=== PATIENT | male | born 1950 | race Caucasian/White ===

== ENCOUNTER 2020-04-07 08:29 | Inpatient (IN) | payer MEDICARE, OTHER ==
[~2020-04-07] VITALS: Ht 167.6 cm; Wt 90.0 kg
[2020-04-07 09:09] LABS: BASOPHILS % (AUTO) 0.5 % (0-1); EOSINOPHILS % (AUTO) 0.7 % (0-6); HEMATOCRIT 46.6 % (42.0-52.0); HEMOGLOBIN 15.9 g/dl (14.0-17.9); LYMPHOCYTES # (AUTO) 1.7 X10'3 (1.1-4.8); LYMPHOCYTES % (AUTO) 22.4 % (21-51); MEAN CORPUSCULAR HEMOGLOBIN 29.8 PG (27.0-31.0); MEAN CORPUSCULAR HGB CONC 34.1 g/dL (33.0-36.5); MEAN CORPUSCULAR VOLUME 87.3 FL (78-98); MEAN PLATELET VOLUME 7.4 FL (7.4-10.4); MONOCYTES # (AUTO) 0.5 X10'3 (0-0.9); MONOCYTES % (AUTO) 6.2 % (2-12); NEUTROPHILS # (AUTO) 5.2 X10'3 (1.8-7.7); NEUTROPHILS % (AUTO) 70.2 % (42-75); PLATELET COUNT 324 X10'3 (140-440); RED BLOOD COUNT 5.34 X10'6 (4.70-6.10); WHITE BLOOD COUNT 7.4 X10'3 (4.5-11.0)
[2020-04-07 09:18] LABS: PARTIAL THROMBOPLASTIN TIME 30 SECONDS (22-32)
[2020-04-07 09:22] LABS: ALANINE AMINOTRANSFERASE 23 U/L (12-78); ALBUMIN 4.1 G/DL (3.4-5.0); ALBUMIN/GLOBULIN RATIO 1.1 (1.1-1.5); ALKALINE PHOSPHATASE 79 IU/L (46-116); ANION GAP 9 (8-16); ASPARTATE AMINO TRANSFERASE 16 U/L (10-37); BILIRUBIN,TOTAL 0.5 MG/DL (0.1-1.0); BLOOD UREA NITROGEN 12 MG/DL (7-18); BUN/CREATININE RATIO 12.9 (5.4-32.0); CHLORIDE 104 MMOL/L (99-107); CREATININE 0.93 MG/DL (0.60-1.10); GLUCOSE 113 MG/DL (70-104); POTASSIUM 3.6 MMOL/L (3.5-5.1); SODIUM 140 MMOL/L (135-145); TOTAL PROTEIN 7.9 G/DL (6.4-8.2); eGFR 81 ML/MIN
[2020-04-07 09:25] LABS: TROPONIN I < 0.04 NG/ML (0.0-0.05)
[2020-04-07] MEDS ORDERED: acetaminophen 325mg tablet PO PRN (10:55)
[2020-04-07] MEDS ORDERED: ondansetron/PF 4mg/2ml inj IV PRN (10:55)
[2020-04-07] MEDS ORDERED: magnesium Cl slow-release 64mg tablet PO PRN (10:55)
[2020-04-07] MEDS ORDERED: magnesium 2GM in 50ml NS 50 ML IV PRN (10:55)
[2020-04-07] MEDS ORDERED: potassium CL 10mEq/100ml bag 100 ML IV PRN ×2 (10:55)
[2020-04-07] MEDS ORDERED: magnesium 4gm in 100ml NS 100 ML IV PRN (10:55)
[2020-04-07] MEDS ORDERED: potassium Cl 20 mEq SR tablet PO PRN ×2 (10:55)
[2020-04-07] MEDS: aspirin 81mg tablet.DR PO SCH (11:18)
[2020-04-07] MEDS: clopidogrel 75mg tablet PO SCH (11:18)
[2020-04-07] MEDS ORDERED: iohexol 350MG/ML 100ml bottle IV ONE (11:42)
[2020-04-07] MEDS ORDERED: NO HOME MEDS (17:12)
[2020-04-07 18:00] VITALS: BP 173/92
--- NOTE | 2020-04-07 18:21 | NUR ---
RECEIVED REPORT FROM RICCARDO HAUSER AND ASSUMED PATIENT CARE
[2020-04-07] MEDS: docusate sod 100mg capsule PO SCH (20:00)
[2020-04-07] MEDS: K and/or MAG REPLACEMENT MC SCH (20:00)
[2020-04-07 22:00] VITALS: BP 132/78
[2020-04-08 02:00] VITALS: BP 154/85
[2020-04-08 06:00] VITALS: BP 122/59
--- NOTE | 2020-04-08 06:15 | NUR ---
Patient in room ORTHO 4010. I have received report from ANALISA CEDILLO and had the opportunity to ask questions and assume patient care.
[2020-04-08 07:55] LABS: BASOPHILS % (AUTO) 0.5 % (0-1); EOSINOPHILS # (AUTO) 0.1 X10'3 (0-0.9); EOSINOPHILS % (AUTO) 1.2 % (0-6); HEMATOCRIT 46.3 % (42.0-52.0); HEMOGLOBIN 15.8 g/dl (14.0-17.9); LYMPHOCYTES # (AUTO) 1.5 X10'3 (1.1-4.8); LYMPHOCYTES % (AUTO) 21.3 % (21-51); MEAN CORPUSCULAR HGB CONC 34.3 g/dL (33.0-36.5); MEAN CORPUSCULAR VOLUME 87.5 FL (78-98); MEAN PLATELET VOLUME 7.5 FL (7.4-10.4); MONOCYTES # (AUTO) 0.6 X10'3 (0-0.9); MONOCYTES % (AUTO) 8.4 % (2-12); NEUTROPHILS # (AUTO) 4.8 X10'3 (1.8-7.7); NEUTROPHILS % (AUTO) 68.6 % (42-75); PLATELET COUNT 221 X10'3 (140-440); RED BLOOD COUNT 5.29 X10'6 (4.70-6.10); RED CELL DISTRIBUTION WIDTH 13.1 % (11.5-14.5); WHITE BLOOD COUNT 7.1 X10'3 (4.5-11.0)
[2020-04-08] MEDS: K and/or MAG REPLACEMENT MC SCH (08:00)
[2020-04-08 08:07] LABS: ALBUMIN 3.6 G/DL (3.4-5.0); ANION GAP 9 (8-16); BLOOD UREA NITROGEN 9 MG/DL (7-18); BUN/CREATININE RATIO 10.5 (5.4-32.0); CALCIUM 8.7 MG/DL (8.5-10.1); CHLORIDE 105 MMOL/L (99-107); CHOL/HDL RATIO 3.9 (0.00-4.99); CHOLESTEROL 226 MG/DL (0-200); CREATININE 0.86 MG/DL (0.60-1.10); GLUCOSE 111 MG/DL (70-104); HDL CHOLESTEROL 58 MG/DL (35-60); LDL CHOLESTEROL 157 MG/DL (50-100); MAGNESIUM 2.1 MG/DL (1.5-2.4); POTASSIUM 3.7 MMOL/L (3.5-5.1); SODIUM 138 MMOL/L (135-145); TOTAL CARBON DIOXIDE 24.4 MMOL/L (24-32); TRIGLYCERIDES 85 MG/DL (20-135); eGFR 88 ML/MIN
[2020-04-08] MEDS: clopidogrel 75mg tablet PO SCH (09:52)
[2020-04-08] MEDS: aspirin 81mg tablet.DR PO SCH (09:52)
[2020-04-08] MEDS: docusate sod 100mg capsule PO SCH (09:52)
[2020-04-08 10:00] VITALS: BP 152/93
[2020-04-08 14:00] VITALS: BP 147/90
[2020-04-08] MEDS ORDERED: ASPI-1071 PO (15:52)
[2020-04-08] MEDS ORDERED: CLOP75TA35 PO (15:52)
[2020-04-08] MEDS ORDERED: ATOR40TA PO (15:53)
--- NOTE | 2020-04-08 17:40 | NUR ---
reviewed all discharge instructions,prescriptions confirmed at [facility] pt provided stroke eduction information,KESHIA dc'd rfa,site clear,pt aware of need for for f/u appts,discharged via wheelchair with all belongings
== END 2020-04-08 17:35 | disposition home or self-care (01) | DRG 66 ==
LOC: ER 08:31 → ED HOLD 11:19 → ORTHO 4S 14:10
PROVIDERS: ADMIT Internal Medicine; ATTEND Internal Medicine
PROC: B3251ZZ Computerized Tomography (CT Scan) of Bilateral Common Carotid Arteries using Low Osmolar Contrast (ICD-10-PCS; principal; 2020-04-07)
PROC: B32G1ZZ Computerized Tomography (CT Scan) of Bilateral Vertebral Arteries using Low Osmolar Contrast (ICD-10-PCS; 2020-04-07)
PROC: B32R1ZZ Computerized Tomography (CT Scan) of Intracranial Arteries using Low Osmolar Contrast (ICD-10-PCS; 2020-04-07)
PROC: B3281ZZ Computerized Tomography (CT Scan) of Bilateral Internal Carotid Arteries using Low Osmolar Contrast (ICD-10-PCS; 2020-04-07)
DX: I63.9 Cerebral infarction, unspecified (principal); E78.5 Hyperlipidemia, unspecified; R03.0 Elevated blood-pressure reading, without diagnosis of hypertension; Z88.0 Allergy status to penicillin; Z88.8 Allergy status to other drugs, medicaments and biological substances
CPT/HCPCS: 36415; 70450; 70496; 70498; 70551; 71045; 80048; 80053; 80061; 82948; 83735; 84484; 85025; 85610; 85730; 87081; 92508; 92616; 93005; 99285; G0378; Q9967

== ENCOUNTER 2022-09-01 22:15 | Emergency (ER) | payer MEDICARE ==
[~2022-09-01] VITALS: Ht 170.2 cm; Wt 91.8 kg
[~2022-09-01 22:15] MED LIST: ASPI-1071 PO; CLOP75TA34 PO; NO HOME MEDS
[2022-09-02] VITALS (36 sets, daily range): BP systolic 90–160; BP diastolic 49–90
--- NOTE | 2022-09-02 | NUR ---
I agree with A Phillip Nunez assessment.
--- NOTE | 2022-09-02 00:25 | NUR ---
bladder scanner: 573 mL urine
[2022-09-02] MEDS ORDERED: LIDOcaine 2% 10ml TOPICAL JELLY (Urojet) MM ONE (01:50)
[2022-09-02] MEDS ORDERED: normal saline 1000ml 1,000 ML IV ONE (03:20)
[2022-09-02 03:51] LABS: BASOPHILS % (AUTO) 0.2 % (0-1); EOSINOPHILS % (AUTO) 0 % (0-6); HEMATOCRIT 45.8 % (42.0-52.0); HEMOGLOBIN 15.2 g/dl (14.0-17.9); LYMPHOCYTES # (AUTO) 0.9 X10'3 (1.1-4.8); MEAN CORPUSCULAR HEMOGLOBIN 29.3 PG (27.0-31.0); MEAN CORPUSCULAR HGB CONC 33.2 g/dL (33.0-36.5); MEAN CORPUSCULAR VOLUME 88.2 FL (78-98); MEAN PLATELET VOLUME 7.1 FL (7.4-10.4); MONOCYTES # (AUTO) 0.7 X10'3 (0-0.9); MONOCYTES % (AUTO) 4.6 % (2-12); NEUTROPHILS # (AUTO) 12.8 X10'3 (1.8-7.7); NEUTROPHILS % (AUTO) 89.2 % (42-75); PLATELET COUNT 288 X10'3 (140-440); RED BLOOD COUNT 5.19 X10'6 (4.70-6.10); RED CELL DISTRIBUTION WIDTH 13.1 % (11.5-14.5); WHITE BLOOD COUNT 14.3 X10'3 (4.5-11.0)
[2022-09-02 04:05] LABS: APTT 28 SECONDS (22-32)
[2022-09-02 04:07] LABS: ALANINE AMINOTRANSFERASE 35 U/L (12-78); ALBUMIN 4.3 G/DL (3.4-5.0); ALBUMIN/GLOBULIN RATIO 1.3 (1.1-1.5); ALKALINE PHOSPHATASE 122 IU/L (46-116); ANION GAP 9 (8-16); ASPARTATE AMINO TRANSFERASE 27 U/L (10-37); BLOOD UREA NITROGEN 16 MG/DL (7-18); BUN/CREATININE RATIO 15.7 (5.4-32.0); CALCIUM 8.9 MG/DL (8.5-10.1); CHLORIDE 101 MMOL/L (99-107); CREATININE 1.02 MG/DL (0.60-1.10); GLUCOSE 163 MG/DL (70-104); MAGNESIUM 1.9 MG/DL (1.5-2.4); POTASSIUM 3.4 MMOL/L (3.5-5.1); SODIUM 137 MMOL/L (135-145); TOTAL CARBON DIOXIDE 27.3 MMOL/L (24-32); TOTAL PROTEIN 7.7 G/DL (6.4-8.2); eGFR 72 ML/MIN
[2022-09-02] MEDS ORDERED: LORazepam 2 mg/ml vial IV ONE (04:10)
[2022-09-02] MEDS ORDERED: ciprofloxacin 250mg tablet PO ONE (04:30)
[2022-09-02] MEDS ORDERED: ondansetron/PF 4mg/2ml inj IV ONE (04:40)
[2022-09-02] MEDS ORDERED: fentaNYL/PF 50MCG/1 ML 2ML syringe ONE (05:13)
[2022-09-02] MEDS ORDERED: rocuronium 10mg/ml inj IV ONE (05:14)
[2022-09-02] MEDS ORDERED: sevoflurane 250ml liquid IH ONE (05:14)
[2022-09-02] MEDS ORDERED: HYDROmorphone/PF 0.2 MG/ML SYRINGE IV PRN ×2 (05:15)
[2022-09-02] MEDS ORDERED: ondansetron/PF 4mg/2ml inj IV PRN (05:15)
[2022-09-02] MEDS ORDERED: morphine 2 MG/ML inj. syringe IV PRN (05:15)
[2022-09-02] MEDS ORDERED: ringers solution, lacted 1,000 ML IV SCH (05:15)
[2022-09-02] MEDS ORDERED: sugammadex 200mg/2ml injection IV ONE (07:53)
--- NOTE | 2022-09-02 07:58 | NUR ---
Received from OR via , accompanied by Anesthesiologist BILL AND OR NURSE and report given by Anesthesiolgist. PT IS DROWSY, SHAKING/SHIVERING FROM ANESTHESIA. SOMEWHAT CONTRACTED POSSIBLY DUE TO PREVIOUS STROKE. CATHETER IS IN PLACE WITH BLOODY URINE. DEMEROL GIVEN FOR SHIVERS. Addendum: 09/02/22 at 0844 by Elizabeth Hodgson RN Amended: Links added.
[2022-09-02] MEDS ORDERED: ciprofloxacin lact 400MG/200ML 200 ML IV SCH (08:00)
[2022-09-02] MEDS ORDERED: meperidine/PF 25mg/ml syringe ONE (08:03)
[2022-09-02 08:21] LABS: ISTAT ANION GAP 11 (8-12); ISTAT BUN 22 mg/dL (7-18); ISTAT CL 105 mmol/L (99-107); ISTAT CREATININE 0.7 mg/dL (0.8-1.3); ISTAT GLUCOSE 145 mg/dL (70-104); ISTAT Hct 44 %PCV (42-52); ISTAT IONIZED CALCIUM 1.14 mmol/L (1.03-1.32); ISTAT K 3.9 mmol/L (3.5-5.1); ISTAT NA 140 mmol/L (135-145); ISTAT TOTAL CO2 24 mmol/L (24-32); ISTAT eGFR > 90 ML/MIN; POC BUN/CREATININE RATIO 31.4 (5.4-32.0)
[2022-09-02] MEDS ORDERED: propofol inj 20 ML IV ONE (08:42)
[2022-09-02] MEDS ORDERED: ondansetron/PF 4mg/2ml inj ONE (08:42)
[2022-09-02] MEDS ORDERED: LIDOcaine 2% (20mg/ml) 5ml vial ONE (08:42)
[2022-09-02] MEDS ORDERED: glycopyrrolate 0.2mg/ml inj ONE (08:42)
[2022-09-02] MEDS ORDERED: neostigmine methylsulfate 1 MG/ML 10ml vial ONE (08:42)
--- NOTE | 2022-09-02 09:36 | NUR ---
NOTIFIED DR. JAVIER OF ELEVATED HR. TO BE ADMITTED BY HOSPITAL MD IF HR DOES NOT LOWER PER MD.
--- NOTE | 2022-09-02 10:00 | NUR ---
PT'S UPDATED ON PLAN OF CARE.
--- NOTE | 2022-09-02 11:30 | NUR ---
EKG ordered per Dr. Zavala. Done at bedside and given to MD. OK to dc home per MD, patient is agreeable.
--- NOTE | 2022-09-02 12:30 | NUR ---
PT INSTRUCTED ON INCENTIVE SPIROMETER USE. PT DISPLAYED PROPER RETURN BACK DEMONSTRATION AND UNDERSTANDS ITS USE.
--- NOTE | 2022-09-02 13:00 | NUR ---
PATIENT VERBALIZED UNDERSTANDING D/C IMNSTRUCTIONS AND F/C MANAGMENT AND PIV WAS D/C AND PATIENT SENT HOME TO VIA CAB WITH ALL BELONGINGS W/ F/C PER DR GAMEZ. Addendum: 09/02/22 at 1505 by Titus Kc RN WRONG TIME
--- NOTE | 2022-09-02 13:15 | NUR ---
CLARIFIED WITH DR JAVIER, F/C TO GO HOME WITH PT. FOLLOW UP WILL BE DONE IN APPROX 2-3 WEEKS.
--- NOTE | 2022-09-02 13:32 | NUR ---
RN CALLED PT'S FOR PT PICK-UP. UNABLE TO CABLE WIRER. PT AND TALKING ON PERSONAL PHONE TO SET UP AN UBER PICKUP.
--- NOTE | 2022-09-02 13:37 | NUR ---
PT STATES HE DOES NOT HAVE A RIDE HOME OR UNABLE ARRANGE A RIDE HOME. PT AAOX4, KRAUS X4, DENIES PAIN. PT FINISHED TALKING WITH ON PERSONAL CELL PHONE. UPDATED ON PLAN OF CARE.
--- NOTE | 2022-09-02 13:53 | NUR ---
PT'S HAS CONCERNS OF DC HOME, PT STATES "I'M TOO TIRED TO SET UP AN UBER". DR LEOS NOTIFIED OF PT'S STATUS. CASE MANAGEMENT TO BE NOTIFIED TO ARRANGE SAFE DISCHARGE HOME.
--- NOTE | 2022-09-02 14:14 | NUR ---
TALKED WITH CASE MANAGEMENT WHO DISCUSSED SITUATION WITH DR GRAFF. PT CLEARED AND SAFE FOR DISCHARGE. IS HOME TO RECEIVE PT. [employer] NUMBER OBTAINED AND WILL SET UP TRANSPORTATION HOME, PT HAS [employer] AND MEANS OF PAYING FOR [employer]. PT AND AGREEABLE TO PLAN OF CARE AND DISHCARGE HOME.
--- NOTE | 2022-09-02 14:24 | NUR ---
HAND OFF REPORT TO FELIPE, BROUGHT PT TO PAS FOR OBS UNTIL ABLE TO PASS WALKING TRIAL. PT INSTRUCTED ON SILVA CATHETER CARE AND FOLLOW UP PLAN OF CARE/DISCHARGE PLAN OF CARE. TOLERATED ORAL DRINKS. NO COMPLAINTS OF PAIN.
--- NOTE | 2022-09-02 15:00 | NUR ---
PATIENT VERBALIZED UNDERSTANDING D/C IMNSTRUCTIONS AND F/C MANAGMENT AND PIV WAS D/C AND PATIENT SENT HOME TO VIA CAB WITH ALL BELONGINGS W/ F/C PER DR GAMEZ.
--- NOTE | 2022-09-02 17:00 | NUR ---
PT'S WAS CALLED AND RN DISCUSSED DISCHARGE INSTRUCTIONS, QUESTIONS ADDRESSED CONCERNING DISCHARGE, ALONG WITH EDUCATION ON SILVA CATH CARE AND FOLLOW UP INFORMATION CONCERNING FOLLOW UP WITH MD. VERBALIZED UNDERSTANDING. DR. JAVIER NOTIFIED OF 'S REQUEST FOR PERSONAL PHONE CALL FROM . BERNARDINO HAAS'S PHONE NUMBER RELAYED TO MD. ( NUMBER: [phone]) Addendum: 09/02/22 at 1748 by Jim Haines RN Amended: Links added.
== END 2022-09-02 15:00 | disposition home or self-care (01) ==
LOC: ER 22:16 → PAS 09-02 05:03 → ER 09-02 15:00
DX: T19.0XXA Foreign body in urethra, initial encounter (principal); N13.9 Obstructive and reflux uropathy, unspecified; Z88.0 Allergy status to penicillin; Z88.4 Allergy status to anesthetic agent; X58.XXXA Exposure to other specified factors, initial encounter; Y93.89 Activity, other specified; Y92.89 Other specified places as the place of occurrence of the external cause; Y99.8 Other external cause status
CPT/HCPCS: 36415; 52310; 80047; 80053; 82948; 83735; 85025; 85610; 85730; 93005; 96374; 96375; 99285; C1726; C1769; J2060; J2175; J2405; J2704; J2710; J3010; J3490; J7120; Z7506; Z7508; A4338; A4618; A7000